=== PATIENT | female | born 1965 | race Caucasian/White ===

== ENCOUNTER → 2023-12-14 07:59 | Outpatient (REF) | payer OTHER, SELFPAY ==
[2023-12-14 09:21] LABS: % Basophils 0.8 % (0-2); % Eosinophils 1.8 % (0-6); % Immature Granulocytes 0.3 % (0-0.5); % Lymphocytes 26.2 % (20.5-51.1); % Monocytes 7.4 % (1.7-9.3); % Neutrophils 63.5 % (42.2-75.2); Absolute Basophils 0.1 10^3/uL (0-0.2); Absolute Eosinophils 0.1 10^3/uL (0-0.7); Absolute Monocytes 0.6 10^3/uL (0.1-0.6); Absolute Neutrophils 4.9 10^3/uL (1.4-6.5); Hematocrit 40.5 % (37.0-47.0); Hemoglobin 13.8 g/dL (12.0-16.0); Mean Corp Hgb Conc. 34.1 g/dL (33.0-37.0); Mean Corpuscular Hgb 30.5 pg (27.0-31.0); Mean Corpuscular Volume 89.6 fL (81.0-99.0); Mean Platelet Volume 9.9 fL (7.4-10.4); Nucleated Red Blood Cells % 0 %; Platelet Count 257 10^3/uL (130-400); Red Blood Cell Count 4.52 10^6/uL (4.20-5.40); Red Cell Dist. Width 13.3 % (11.5-14.5); Urine Albumin Negative (Neg - Trace); Urine Bilirubin Negative (Negative); Urine Character Clear (Clear); Urine Color Yellow; Urine Glucose Negative (Negative); Urine Ketone Negative (Negative); Urine Leukocyte Trace (Negative); Urine Nitrite Negative (Negative); Urine Occult Blood Negative (Negative); Urine Specific Gravity 1.015 (<1.030); Urine Urobilinogen Negative (Neg - 1+); White Blood Cell Count 7.7 10^3/uL (4.8-10.8)
[2023-12-14 09:47] LABS: ALT (SGPT) 19 U/L (0-35); AST (SGOT) 23 U/L (14-36); Albumin 4.7 g/dl (3.5-5.0); Alkaline Phosphatase 83 U/L (38-126); Blood Urea Nitrogen 19 mg/dl (7-17); Carbon Dioxide 28 mmol/L (22-30); Chloride 102 mmol/L (98-107); Glucose 113 mg/dl (70-99); HDL Cholesterol 106 mg/dl; LDL Cholesterol, Calculated 59 mg/dl; Potassium 4.2 mmol/L (3.5-5.1); Sodium 138 mmol/L (135-145); Total Bilirubin 0.6 mg/dl (0.2-1.3); Total Cholesterol 206 mg/dl (50-199); Total Protein 7.7 g/dl (6.3-8.2); Triglyceride 206 mg/dl (10-149); Uric Acid 6.4 mg/dl (2.5-6.2); Very Low Density Lipoprotein 41 mg/dl (0-30); eGFR > 60.00
[2023-12-14 10:02] LABS: Microalbumin, Random Urine <0.6 mg/dl (0.6-1.7)
[2023-12-14 10:03] LABS: Free T4 1.24 ng/dl (0.78-2.19); Vitamin D, 25-OH*** 48.5 ng/mL (30-80)
[2023-12-14 10:05] LABS: Urine Bacteria Few (Negative); Urine Red Blood Cell 0-2 /HPF (0-2)
[2023-12-14 10:16] LABS: TSH 2.52 uIU/ml (0.47-4.68)
[2023-12-14 10:33] LABS: Hepatitis B Core Ab, Total Negative (Negative); Hepatitis B Surface Antibody Negative
[2023-12-14 11:06] LABS: Erythrocyte Sed Rate 7 mm/hour (0-20)
[2023-12-14 15:01] LABS: Glycohemoglobin (HgbA1c) 5.8 % (4.0-5.6)
== END ==
LOC: REG 07:59
PROVIDERS: ATTENDING PHYSICIAN Family Medicine
DX: Z00.00 Encounter for general adult medical examination without abnormal findings (principal); E11.9 Type 2 diabetes mellitus without complications; E78.9 Disorder of lipoprotein metabolism, unspecified; I10 Essential (primary) hypertension; E55.9 Vitamin D deficiency, unspecified; Z11.59 Encounter for screening for other viral diseases
CPT/HCPCS: 36415; 80053; 80061; 81003; 81015; 82043; 82306; 82570; 83036; 84439; 84443; 84550; 85025; 85652; 86704; 86706

== ENCOUNTER → 2024-01-25 09:20 | Outpatient (REF) | payer OTHER, SELFPAY ==
[2024-01-25 11:11] LABS: TSH Reflex To Free T4 2.55 uIU/ml (0.47-4.68)
== END ==
LOC: REG 09:20
PROVIDERS: ATTENDING PHYSICIAN Nurse Practitioner Family
DX: E03.9 Hypothyroidism, unspecified (principal)
CPT/HCPCS: 36415; 84443

== ENCOUNTER → 2024-04-03 09:20 | Outpatient (REF) | payer OTHER, SELFPAY ==
[2024-04-03 10:43] LABS: ALT (SGPT) 25 U/L (0-35); AST (SGOT) 27 U/L (14-36); Albumin 4.7 g/dl (3.5-5.0); Alkaline Phosphatase 62 U/L (38-126); Blood Urea Nitrogen 15 mg/dl (7-17); Carbon Dioxide 27 mmol/L (22-30); Chloride 105 mmol/L (98-107); Creatine Phosphokinase 299 U/L (30-135); Glucose 107 mg/dl (70-99); HDL Cholesterol 103 mg/dl; LDL Cholesterol, Calculated 16 mg/dl; Potassium 4.7 mmol/L (3.5-5.1); Sodium 140 mmol/L (135-145); Total Cholesterol 139 mg/dl (50-199); Total Protein 7.3 g/dl (6.3-8.2); Triglyceride 101 mg/dl (10-149); Uric Acid 6.6 mg/dl (2.5-6.2); Very Low Density Lipoprotein 20 mg/dl (0-30); eGFR > 60.00
[2024-04-03 12:36] LABS: Glycohemoglobin (HgbA1c) 5.8 % (4.0-5.6)
== END ==
LOC: REG 09:20
PROVIDERS: ATTENDING PHYSICIAN Family Medicine
DX: E79.0 Hyperuricemia without signs of inflammatory arthritis and tophaceous disease (principal)
CPT/HCPCS: 36415; 80053; 80061; 82550; 83036; 84550

== ENCOUNTER → 2024-07-03 06:18 | Day surgery (SDC) | payer OTHER, SELFPAY ==
[2024-07-03 10:51] LABS: Glucose - Point of Care 101 mg/dl (70-99)
== END ==
LOC: GI 06:18
PROVIDERS: ATTENDING PHYSICIAN Internal Medicine
DX: Z12.11 Encounter for screening for malignant neoplasm of colon (principal); D12.0 Benign neoplasm of cecum; D12.3 Benign neoplasm of transverse colon; K63.5 Polyp of colon
CPT/HCPCS: 45385; 45380; 88305; 82962

== ENCOUNTER → 2024-11-07 09:40 | Outpatient (REF) | payer OTHER, SELFPAY ==
[2024-11-07 11:37] LABS: ALT (SGPT) 21 U/L (0-35); AST (SGOT) 23 U/L (14-36); Albumin 4.7 g/dl (3.5-5.0); Alkaline Phosphatase 62 U/L (38-126); Blood Urea Nitrogen 16 mg/dl (7-17); Calcium 9.7 mg/dl (8.4-10.2); Carbon Dioxide 29 mmol/L (22-30); Chloride 101 mmol/L (98-107); Creatine Phosphokinase 133 U/L (30-135); Glucose 103 mg/dl (70-99); Potassium 4.5 mmol/L (3.5-5.1); Sodium 138 mmol/L (135-145); Total Bilirubin 0.6 mg/dl (0.2-1.3); Total Cholesterol 166 mg/dl (50-199); Total Protein 7.2 g/dl (6.3-8.2); Triglyceride 132 mg/dl (10-149); Very Low Density Lipoprotein 26 mg/dl (0-30); eGFR > 60.00
[2024-11-07 11:38] LABS: Microalbumin, Random Urine <0.6 mg/dl (0.6-1.7)
[2024-11-07 11:47] LABS: HDL Cholesterol 116 mg/dl; LDL Cholesterol, Calculated 24 mg/dl
[2024-11-07 12:40] LABS: Glycohemoglobin (HgbA1c) 5.8 % (4.0-5.6)
== END ==
LOC: REG 09:40
PROVIDERS: ATTENDING PHYSICIAN Family Medicine
DX: E11.9 Type 2 diabetes mellitus without complications (principal); E78.00 Pure hypercholesterolemia, unspecified; E79.0 Hyperuricemia without signs of inflammatory arthritis and tophaceous disease
CPT/HCPCS: 36415; 80053; 80061; 82043; 82550; 82570; 83036

== ENCOUNTER → 2025-01-24 09:02 | Outpatient (REF) | payer OTHER, SELFPAY ==
[2025-01-24 16:38] LABS: Free T4 1.02 ng/dl (0.78-2.19)
[2025-01-24 16:52] LABS: TSH 0.28 uIU/ml (0.47-4.68)
== END ==
LOC: REG 09:02
PROVIDERS: ATTENDING PHYSICIAN Physician Assistant; FAMILY PHYSICIAN Family Medicine
DX: E03.9 Hypothyroidism, unspecified (principal)
CPT/HCPCS: 36415; 84439; 84443

== ENCOUNTER → 2025-02-21 09:42 | Outpatient (REF) | payer OTHER, SELFPAY ==
[2025-02-21 11:28] LABS: ALT (SGPT) 25 U/L (0-35); AST (SGOT) 23 U/L (14-36); Albumin 4.7 g/dl (3.5-5.0); Alkaline Phosphatase 49 U/L (38-126); Blood Urea Nitrogen 23 mg/dl (7-17); Calcium 9.5 mg/dl (8.4-10.2); Carbon Dioxide 25 mmol/L (22-30); Chloride 110 mmol/L (98-107); Glucose 106 mg/dl (70-99); HDL Cholesterol 107 mg/dl; LDL Cholesterol, Calculated 15 mg/dl; Potassium 4.3 mmol/L (3.5-5.1); Sodium 142 mmol/L (135-145); Total Bilirubin 0.9 mg/dl (0.2-1.3); Total Cholesterol 142 mg/dl (50-199); Total Protein 6.9 g/dl (6.3-8.2); Triglyceride 103 mg/dl (10-149); Very Low Density Lipoprotein 20 mg/dl (0-30); eGFR > 60.00
[2025-02-21 11:30] LABS: Urine Albumin Negative (Neg - Trace); Urine Bilirubin Negative (Negative); Urine Character Clear (Clear); Urine Color Yellow; Urine Glucose Negative (Negative); Urine Ketone Negative (Negative); Urine Leukocyte Negative (Negative); Urine Nitrite Negative (Negative); Urine Occult Blood Negative (Negative); Urine Specific Gravity 1.015 (<1.030); Urine Urobilinogen Negative (Neg - 1+)
[2025-02-21 11:43] LABS: Erythrocyte Sed Rate 10 mm/hour (0-20)
[2025-02-21 11:45] LABS: Vitamin D, 25-OH*** 56.5 ng/mL (30-80)
[2025-02-21 11:52] LABS: Creatine Phosphokinase 136 U/L (30-135); Uric Acid 6.3 mg/dl (2.5-6.2)
[2025-02-21 11:57] LABS: % Basophils 0.9 % (0-2); % Immature Granulocytes 0.6 % (0-0.5); % Lymphocytes 22.4 % (20.5-51.1); % Monocytes 6.5 % (1.7-9.3); % Neutrophils 66.6 % (42.2-75.2); Absolute Basophils 0.1 10^3/uL (0-0.2); Absolute Eosinophils 0.2 10^3/uL (0-0.7); Absolute Lymphocytes 1.6 10^3/uL (1.2-3.4); Absolute Monocytes 0.5 10^3/uL (0.1-0.6); Absolute Neutrophils 4.6 10^3/uL (1.4-6.5); Hematocrit 39.3 % (37.0-47.0); Hemoglobin 13.3 g/dL (12.0-16.0); Mean Corp Hgb Conc. 33.8 g/dL (33.0-37.0); Mean Corpuscular Hgb 31.2 pg (27.0-31.0); Mean Corpuscular Volume 92.3 fL (81.0-99.0); Mean Platelet Volume 10.8 fL (7.4-10.4); Nucleated Red Blood Cells % 0 %; Platelet Count 206 10^3/uL (130-400); Red Blood Cell Count 4.26 10^6/uL (4.20-5.40); Red Cell Dist. Width 13.4 % (11.5-14.5); White Blood Cell Count 6.9 10^3/uL (4.8-10.8)
[2025-02-21 11:58] LABS: TSH 1.95 uIU/ml (0.47-4.68)
[2025-02-21 12:01] LABS: Microalbumin, Random Urine <0.6 mg/dl (0.6-1.7)
[2025-02-21 12:54] LABS: Glycohemoglobin (HgbA1c) 5.9 % (4.0-5.6)
[2025-02-22 14:53] LABS: Hepatitis B Surface Antigen Negative (Negative)
[2025-02-22 15:11] LABS: Hepatitis B Core Ab, Total Negative (Negative); Hepatitis B Surface Antibody Negative
[2025-02-22 23:06] LABS: Lipoprotein a (Lp a) 7 mg/dL (<=29)
[2025-02-22 23:11] LABS: Apolipoprotein B 33 mg/dL (60-117)
[2025-02-23 10:55] LABS: CRP, Ultra Sensitive < 0.30 mg/L (0.30-5.00)
== END ==
LOC: REG 09:42
PROVIDERS: ATTENDING PHYSICIAN Family Medicine
DX: Z00.00 Encounter for general adult medical examination without abnormal findings (principal); E11.9 Type 2 diabetes mellitus without complications; K21.9 Gastro-esophageal reflux disease without esophagitis; E78.00 Pure hypercholesterolemia, unspecified; E78.9 Disorder of lipoprotein metabolism, unspecified; I10 Essential (primary) hypertension; E55.9 Vitamin D deficiency, unspecified; Z11.59 Encounter for screening for other viral diseases
CPT/HCPCS: 36415; 80053; 80061; 81003; 82043; 82172; 82306; 82550; 82570; 83036; 83695; 84439; 84443; 84550; 85025; 85652; 86141; 86704; 86706; 87340

== ENCOUNTER → 2025-03-20 14:53 | Outpatient (REF) | payer OTHER, SELFPAY ==
[2025-03-20 16:25] LABS: TSH 0.24 uIU/ml (0.47-4.68)
== END ==
LOC: REG 14:53
PROVIDERS: ATTENDING PHYSICIAN Physician Assistant; FAMILY PHYSICIAN Family Medicine
DX: E03.9 Hypothyroidism, unspecified (principal)
CPT/HCPCS: 36415; 84439; 84443

== ENCOUNTER → 2025-09-19 09:45 | Outpatient (REF) | payer OTHER, SELFPAY ==
[2025-09-19 11:37] LABS: ALT (SGPT) 30 U/L (0-35); AST (SGOT) 38 U/L (14-36); Albumin 4.3 g/dl (3.5-5.0); Alkaline Phosphatase 55 U/L (38-126); Blood Urea Nitrogen 13 mg/dl (7-17); Calcium 9.8 mg/dl (8.4-10.2); Carbon Dioxide 28 mmol/L (22-30); Chloride 105 mmol/L (98-107); Glucose 102 mg/dl (70-99); HDL Cholesterol 104 mg/dl; LDL Cholesterol, Calculated 10 mg/dl; Potassium 4.2 mmol/L (3.5-5.1); Sodium 138 mmol/L (135-145); Total Protein 6.9 g/dl (6.3-8.2); Uric Acid 5.7 mg/dl (2.5-6.2); Very Low Density Lipoprotein 10 mg/dl (0-30); eGFR > 60.00
[2025-09-19 11:43] LABS: Glycohemoglobin (HgbA1c) 5.9 % (4.0-5.9)
[2025-09-19 16:17] LABS: Microalbumin, Random Urine 0.6 mg/dl (0.6-1.7)
== END ==
LOC: REG 09:45
PROVIDERS: ATTENDING PHYSICIAN Family Medicine
DX: E79.0 Hyperuricemia without signs of inflammatory arthritis and tophaceous disease (principal); E78.00 Pure hypercholesterolemia, unspecified; E11.9 Type 2 diabetes mellitus without complications
CPT/HCPCS: 36415; 80053; 80061; 82043; 82550; 82570; 83036; 84550